=== PATIENT | female | born 1965 ===

== ENCOUNTER 2021-09-17 09:00 | Day surgery (SDC) | payer OTHER ==
[~2021-09-17 09:00] MED LIST: BENTYL; CLARITIN-D 121 EACH PO; EMBREL PO; FIORICET PO; LYRICA PO; PROTONIX40 M1 PO
== END 2021-09-17 17:35 | disposition home or self-care (01) ==
LOC: CIR.AMB 09:00
PROVIDERS: ATTEND Orthopaedic Surgery
DX: S53.31XA Traumatic rupture of right ulnar collateral ligament, initial encounter (principal); M77.11 Lateral epicondylitis, right elbow; G56.21 Lesion of ulnar nerve, right upper limb; Z20.822 Contact with and (suspected) exposure to COVID-19